=== PATIENT | male | born 1955 | race American Indian/Alaskan Native ===

== ENCOUNTER 2018-06-14 07:04 | Outpatient (CLI) | payer BC ==
[2018-06-14] MEDS ORDERED: LASIX IV ONE (07:45)
[2018-06-14] MEDS ORDERED: LASIX ONE (07:48)
--- NOTE | 2018-06-14 13:51 | Nuclear Medicine Report ---
NUCLEAR RENAL SCAN CAPTOPRIL/LASIX History: Unspecified hydronephrosis. Technique: Posterior flow and function images were obtained following injection of 5 mCi of technetium 99m MAG3. 20 mg of IV Lasix was administered at 27 minutes. Comparison: Renal scan dated 05/20/13. Findings: The patient gives a history of right nephrectomy. No flow or function of the right kidney is demonstrated on this exam consistent with history of nephrectomy. There appears to be normal flow and uptake of the radiotracer to the left kidney. The excretory curve remains somewhat flattened and abnormal on the renogram images. Mild left hydronephrosis is suggested. There is improvement or steepening of the excretory curve following injection of IV Lasix at 27 minutes. IMPRESSION: Right nephrectomy. Slightly abnormal excretory curve in the left renal collecting system which significantly improves following Lasix administration. No overwhelming change is appreciated since the comparison exam.
== END 2018-06-14 07:05 | disposition home or self-care (01) ==
LOC: NM 07:04
PROVIDERS: ATTEND Urology
DX: N13.30 Unspecified hydronephrosis (principal); E78.00 Pure hypercholesterolemia, unspecified; K21.9 Gastro-esophageal reflux disease without esophagitis; Z90.49 Acquired absence of other specified parts of digestive tract; Z87.891 Personal history of nicotine dependence
CPT/HCPCS: 78708; A9562; J1940